=== PATIENT | male | born 1995 | race Two or more races ===

== ENCOUNTER 2021-03-19 17:35 | Emergency (ER) | payer MEDICAID ==
[~2021-03-19] VITALS: Ht 172.7 cm; Wt 91.0 kg
[2021-03-19 17:56] VITALS: BP 152/90
--- NOTE | 2021-03-19 18:35 | NUR ---
ASSUMED CARE OF PT
[2021-03-19] MEDS ORDERED: FLUORESCEIN OPHTHALMIC 1 MG STRIP EACHEYE ONE (19:00)
[2021-03-19] MEDS ORDERED: FLUORESCEIN OPHTHALMIC 1 MG STRIP ONE (19:35)
--- NOTE | 2021-03-19 19:51 | NUR ---
PT A&OX4, AND STOOL COLLECTED FOR LAB AND SENT. FLOUROZINE STRIPS TO ROOM, SO MED STUDENT CAN CHECK PTS EYES.
--- NOTE | 2021-03-19 19:53 | NUR ---
LAB CALLED AND SAYS THAT THEY ARE UNABLE TO DO THE STOOL SAMPLE, THE STOOL SAMPLE HAS HARDENED AND DRIED. AND THEY CAN'T RUN A DRY STOOL SAMPLE. ADVISED.
--- NOTE | 2021-03-19 20:24 | NUR ---
F/U AND D/C INSTRUCTIONS GIVEN TO PT AND HE V/U. PT AMBULATORY AND D/C'D WITHOUT INCIDENT.
== END 2021-03-19 20:32 | disposition home or self-care (01) ==
LOC: ED 20:00
DX: R19.7 Diarrhea, unspecified (principal); R10.30 Lower abdominal pain, unspecified; I10 Essential (primary) hypertension; Z85.038 Personal history of other malignant neoplasm of large intestine
CPT/HCPCS: 99283

== ENCOUNTER 2021-08-13 15:19 | Outpatient (CLI) | payer MEDICAID | END 2021-08-13 23:59 | disposition home or self-care (01) | LOC: RAD 15:19 | PROVIDERS: ATTEND Nurse Practitioner Family | DX: N48.89 Other specified disorders of penis (principal); N50.819 Testicular pain, unspecified | CPT/HCPCS: 76870 ==